=== PATIENT | male | born 1955 | race Caucasian/White ===

== ENCOUNTER 2023-07-14 15:35 | Observation (INO) | payer MEDICARE ==
[2023-07-14] MEDS: Ondansetron 4 MG/2 ML SDV IVPUSH ONE (15:57)
[2023-07-14] MEDS: PHENobarbital Sodium 130 MG/ML SDV IVPUSH STA (15:58)
[2023-07-14] MEDS: Sodium Chloride 0.9% 1,000 ML IV ONE ×3 (15:58→16:34)
[2023-07-14 16:00] LABS: BASOPHILS ABSOLUTE AUTO 0.06 K/uL (0.00-0.20); BASOPHILS PERCENT AUTO 0.6 % (0.0-1.0); EOSINOPHILS ABSOLUTE AUTO 0.09 K/uL (0.00-0.45); EOSINOPHILS PERCENT AUTO 0.9 % (0.0-6.0); HEMOGLOBIN 14.6 g/dL (14.0-18.0); IMMATURE GRAN ABSOLUTE AUTO 0.03 K/uL (0.00-0.05); IMMATURE GRAN PERCENT AUTO 0.3 % (0.0-0.4); LYMPHOCYTES ABSOLUTE AUTO 1.77 K/uL (1.00-4.80); LYMPHOCYTES PERCENT AUTO 18.3 % (24.0-44.0); MEAN CORPUSCULAR HEMOGLOBIN 32.4 pg (28.0-32.0); MEAN CORPUSCULAR HGB CONC 34.8 g/dL (32.0-36.0); MEAN CORPUSCULAR VOLUME 93.3 fL (83.0-99.0); MEAN PLATELET VOLUME 8.7 fL (9.4-12.4); MONOCYTES ABSOLUTE AUTO 0.88 K/uL (0.00-0.80); MONOCYTES PERCENT AUTO 9.1 % (0.0-8.0); NEUTROPHILS ABSOLUTE AUTO 6.82 K/uL (1.80-7.70); NEUTROPHILS PERCENT AUTO 70.8 % (41.0-71.0); PLATELET COUNT,PLT 326 K/uL (150-400); WHITE BLOOD CELL COUNT,WBC 9.65 K/uL (3.9-11.3)
[2023-07-14 16:21] LABS: A/G RATIO 0.8 (0.9-1.6); ALBUMIN 3.5 g/dL (3.4-5.0); BILIRUBIN TOTAL 0.5 mg/dL (0.2-1.0); CALCIUM 9.5 mg/dL (8.5-10.1); CARBON DIOXIDE,CO2 20.6 mmol/L (21.0-32.0); CREATININE 1.1 mg/dL (0.8-1.3); EST CRCL DRUG DOSING (CG) 65.44 mL/min; POTASSIUM,K 3.8 mmol/L (3.5-5.1)
[2023-07-14 16:24] LABS: LACTIC ACID 4.5 mmol/L (0.4-2.0)
[2023-07-14 17:07] LABS: APPEARANCE,URINE CLEAR; BILIRUBIN,URINE NEGATIVE (NEGATIVE); COLOR,URINE YELLOW; GLUCOSE,URINE NEGATIVE (NEGATIVE); KETONES,URINE TRACE mg/dL (NEGATIVE); LEUKOCYTE ESTERASE,URINE NEGATIVE (NEGATIVE); NITRITE,URINE NEGATIVE (NEGATIVE); OCCULT BLOOD,URINE NEGATIVE (NEGATIVE); PROTEIN,URINE NEGATIVE (NEGATIVE)
[2023-07-14] MEDS: Iopamidol 755 MG/ML 500 ML Multipack Bottle IVPUSH STA (17:37)
[2023-07-14] MEDS ORDERED: Dextrose 5%-0.9% NaCl 1,000 ML IV SCH (18:00)
[2023-07-14] MEDS: Thiamine 200 MG/2 ML MDV IVPUSH ONE (18:07)
[2023-07-14 18:27] LABS: BASE EXCESS VENOUS 1.2 (-2.0-3.0); PH,VENOUS 7.42 (7.31-7.41)
[2023-07-14] MEDS: Folic Acid 1 MG/0.2 ML UD Syringe IV STA (18:37)
[2023-07-14] MEDS: Multivitamin Tab PO STA (18:38)
[2023-07-14 18:57] LABS: MAGNESIUM 1.4 mg/dL (1.8-2.4); PHOSPHORUS 2.6 mg/dL (2.6-4.7)
[2023-07-14] MEDS: cefTRIAXone 1 GM in Sodium Chloride 0.9% 50 ML IV ONE (19:05)
[2023-07-14] MEDS: PHENobarbital Sodium 130 MG/ML SDV ONE (19:09)
[2023-07-14] MEDS: PHENobarbitaL sodium 260 MG in Sodium Chloride 0.9% 100 ML IV ONE (19:09)
[2023-07-14 19:19] LABS: ETHANOL BLOOD MEDICAL < 3.0 mg/dL
[2023-07-14] MEDS ORDERED: PHENobarbital 32.4 MG Tab PO PRN ×3 (19:23)
[2023-07-14] MEDS ORDERED: Acetaminophen 325 MG Tab PO PRN (19:23)
[2023-07-14] MEDS ORDERED: Polyethylene Glycol 3350 Powder 17 GM Packet PO PRN (19:23)
[2023-07-14] MEDS ORDERED: Ondansetron 4 MG Tab.DIS PO PRN (19:23)
[2023-07-14] MEDS ORDERED: PHENobarbital Sodium 130 MG/ML SDV IVPUSH PRN (19:31)
[2023-07-14] MEDS: Azithromycin 500 MG in Sodium Chloride 0.9% 250 ML IV ONE (19:31)
[2023-07-14] MEDS: Magnesium Sulfate/Water 4 GM in Premix Bag 1 BAG IV ONE (20:49)
[2023-07-14] MEDS: Sodium Chloride 0.9% 1,000 ML IV SCH (20:49)
[2023-07-14] MEDS: Enoxaparin 40 MG/0.4 ML Syringe SUBCUT SCH (20:49)
[2023-07-14] MEDS: Pantoprazole 40 MG in Sodium Chloride 0.9% 10 ML IVPUSH SCH (20:49)
[2023-07-15 06:08] LABS: BASOPHILS ABSOLUTE AUTO 0.03 K/uL (0.00-0.20); BASOPHILS PERCENT AUTO 0.4 % (0.0-1.0); EOSINOPHILS ABSOLUTE AUTO 0.17 K/uL (0.00-0.45); EOSINOPHILS PERCENT AUTO 2.4 % (0.0-6.0); HEMATOCRIT 36.9 % (42.0-52.0); HEMOGLOBIN 12.7 g/dL (14.0-18.0); IMMATURE GRAN ABSOLUTE AUTO 0.03 K/uL (0.00-0.05); IMMATURE GRAN PERCENT AUTO 0.4 % (0.0-0.4); LYMPHOCYTES ABSOLUTE AUTO 1.02 K/uL (1.00-4.80); LYMPHOCYTES PERCENT AUTO 14.7 % (24.0-44.0); MEAN CORPUSCULAR HEMOGLOBIN 33.3 pg (28.0-32.0); MEAN CORPUSCULAR HGB CONC 34.4 g/dL (32.0-36.0); MEAN CORPUSCULAR VOLUME 96.9 fL (83.0-99.0); MEAN PLATELET VOLUME 8.9 fL (9.4-12.4); MONOCYTES ABSOLUTE AUTO 0.54 K/uL (0.00-0.80); MONOCYTES PERCENT AUTO 7.8 % (0.0-8.0); NEUTROPHILS ABSOLUTE AUTO 5.16 K/uL (1.80-7.70); NEUTROPHILS PERCENT AUTO 74.3 % (41.0-71.0); PLATELET COUNT,PLT 253 K/uL (150-400); RED BLOOD CELL COUNT 3.81 M/uL (4.52-5.90); WHITE BLOOD CELL COUNT,WBC 6.95 K/uL (3.9-11.3)
[2023-07-15 06:31] LABS: A/G RATIO 0.7 (0.9-1.6); ALBUMIN 2.8 g/dL (3.4-5.0); BILIRUBIN TOTAL 0.5 mg/dL (0.2-1.0); CALCIUM 8.3 mg/dL (8.5-10.1); CARBON DIOXIDE,CO2 27.4 mmol/L (21.0-32.0); EST CRCL DRUG DOSING (CG) 71.99 mL/min; MAGNESIUM 2.2 mg/dL (1.8-2.4); POTASSIUM,K 3.6 mmol/L (3.5-5.1); PROTEIN TOTAL,TP 6.7 g/dL (6.4-8.2)
[2023-07-15] MEDS ORDERED: cefTRIAXone 1 GM in Sodium Chloride 0.9% 50 ML IV SCH ×2 (07:00→19:00)
[2023-07-15] MEDS ORDERED: Azithromycin 500 MG in Sodium Chloride 0.9% 250 ML IV SCH ×2 (07:00→20:00)
[2023-07-15] MEDS: Ondansetron 4 MG/2 ML SDV IVPUSH PRN (07:42)
[2023-07-15] MEDS: Folic Acid 1 MG/0.2 ML UD Syringe IV SCH (07:43)
[2023-07-15] MEDS: Thiamine 200 MG/2 ML MDV IVPUSH SCH (07:43)
[2023-07-15] MEDS: amLODIPine 5 MG Tab PO SCH (09:04)
[2023-07-15] MEDS: Losartan 50 MG Tab PO SCH (09:06)
[2023-07-15] MEDS: Famotidine 20 MG/2 ML SDV IVPUSH ONE (09:06)
[2023-07-15] MEDS ORDERED: atorvaSTATin 20 MG Tab PO SCH (21:00)
== END 2023-07-15 11:30 | disposition home or self-care (01) ==
LOC: MW.ED 15:35 → MW.MS 18:54
PROVIDERS: ADMIT Family Medicine; ATTEND Family Medicine
DX: F10.239 Alcohol dependence with withdrawal, unspecified (principal); I10 Essential (primary) hypertension; E78.5 Hyperlipidemia, unspecified
CPT/HCPCS: 36415; 71045; 74177; 80053; 80307; 81003; 82009; 82803; 83605; 83735; 84100; 85025; 87040; 93005; 96361; 96365; 96366; 96367; 96368; 96372; 96375; 96376; 99285; A9270; C9113; G0103; G0378; J0456; J0696; J1650; J2405; J2560; J3411; J3475; J3490; J7030; J7050; Q9967

== ENCOUNTER 2023-08-06 09:34 | Emergency (ER) | payer MEDICARE ==
[2023-08-06] MEDS: Ondansetron 4 MG/2 ML SDV IVPUSH ONE (09:57)
[2023-08-06] MEDS: Sodium Chloride 0.9% 1,000 ML IV ONE (09:57)
[2023-08-06 10:07] LABS: BASOPHILS ABSOLUTE AUTO 0.07 K/uL (0.00-0.20); BASOPHILS PERCENT AUTO 0.7 % (0.0-1.0); EOSINOPHILS ABSOLUTE AUTO 0.12 K/uL (0.00-0.45); EOSINOPHILS PERCENT AUTO 1.1 % (0.0-6.0); HEMATOCRIT 45.7 % (42.0-52.0); HEMOGLOBIN 16.1 g/dL (14.0-18.0); IMMATURE GRAN ABSOLUTE AUTO 0.02 K/uL (0.00-0.05); IMMATURE GRAN PERCENT AUTO 0.2 % (0.0-0.4); LYMPHOCYTES PERCENT AUTO 17.1 % (24.0-44.0); MEAN CORPUSCULAR HGB CONC 35.2 g/dL (32.0-36.0); MEAN CORPUSCULAR VOLUME 93.6 fL (83.0-99.0); MEAN PLATELET VOLUME 9.5 fL (9.4-12.4); MONOCYTES ABSOLUTE AUTO 0.76 K/uL (0.00-0.80); MONOCYTES PERCENT AUTO 7.2 % (0.0-8.0); NEUTROPHILS ABSOLUTE AUTO 7.73 K/uL (1.80-7.70); NEUTROPHILS PERCENT AUTO 73.7 % (41.0-71.0); PLATELET COUNT,PLT 362 K/uL (150-400); RED BLOOD CELL COUNT 4.88 M/uL (4.52-5.90)
[2023-08-06 10:11] LABS: CARBON DIOXIDE,CO2 19.9 mmol/L (21.0-32.0); CREATININE 1.2 mg/dL (0.8-1.3); EST CRCL DRUG DOSING (CG) 59.14 mL/min; POTASSIUM,K 4.1 mmol/L (3.5-5.1)
[2023-08-06] MEDS: LORazepam 2 MG/ML SDV IVPUSH ONE (10:15)
== END 2023-08-06 12:14 | disposition home or self-care (01) ==
LOC: MW.ED 09:34
DX: R11.2 Nausea with vomiting, unspecified (principal); I10 Essential (primary) hypertension; Z79.899 Other long term (current) drug therapy
CPT/HCPCS: 36415; 80048; 85025; 96361; 96374; 96375; 99284; J2060; J2405; J7030

== ENCOUNTER 2023-10-13 11:30 | Emergency (ER) | payer MEDICARE ==
[2023-10-13] MEDS: Morphine 4 MG/ML Syringe IVPUSH STA ×2 (12:00→12:54)
[2023-10-13] MEDS: Ondansetron 4 MG/2 ML SDV IVPUSH STA (12:00)
[2023-10-13 12:12] LABS: BASE EXCESS VENOUS 0.1 (-2.0-3.0); BASOPHILS ABSOLUTE AUTO 0.07 K/uL (0.00-0.20); BASOPHILS PERCENT AUTO 0.7 % (0.0-1.0); EOSINOPHILS ABSOLUTE AUTO 0.06 K/uL (0.00-0.45); EOSINOPHILS PERCENT AUTO 0.6 % (0.0-6.0); HEMATOCRIT 43.4 % (42.0-52.0); HEMOGLOBIN 15.5 g/dL (14.0-18.0); IMMATURE GRAN ABSOLUTE AUTO 0.04 K/uL (0.00-0.05); IMMATURE GRAN PERCENT AUTO 0.4 % (0.0-0.4); LYMPHOCYTES ABSOLUTE AUTO 1.44 K/uL (1.00-4.80); LYMPHOCYTES PERCENT AUTO 13.8 % (24.0-44.0); MEAN CORPUSCULAR HEMOGLOBIN 33.7 pg (28.0-32.0); MEAN CORPUSCULAR HGB CONC 35.7 g/dL (32.0-36.0); MEAN CORPUSCULAR VOLUME 94.3 fL (83.0-99.0); MEAN PLATELET VOLUME 8.7 fL (9.4-12.4); MONOCYTES ABSOLUTE AUTO 0.95 K/uL (0.00-0.80); MONOCYTES PERCENT AUTO 9.1 % (0.0-8.0); NEUTROPHILS ABSOLUTE AUTO 7.85 K/uL (1.80-7.70); NEUTROPHILS PERCENT AUTO 75.4 % (41.0-71.0); PH,VENOUS 7.55 (7.31-7.41); PLATELET COUNT,PLT 336 K/uL (150-400); WHITE BLOOD CELL COUNT,WBC 10.41 K/uL (3.9-11.3)
[2023-10-13 12:57] LABS: ETHANOL BLOOD MEDICAL <3 mg/dL; MAGNESIUM 1.5 mg/dL (1.8-2.4)
[2023-10-13 13:02] LABS: ALBUMIN 3.8 g/dL (3.4-5.0); BILIRUBIN TOTAL 0.9 mg/dL (0.2-1.0); CALCIUM 10.1 mg/dL (8.5-10.1); CARBON DIOXIDE,CO2 18.1 mmol/L (21.0-32.0); CREATININE 1.4 mg/dL (0.8-1.3); EST CRCL DRUG DOSING (CG) 52.29 mL/min; POTASSIUM,K 4.2 mmol/L (3.5-5.1); PROTEIN TOTAL,TP 7.5 g/dL (6.4-8.2)
[2023-10-13] MEDS: Promethazine 25 MG/ML SDV IM STA (13:04)
[2023-10-13] MEDS: Magnesium Sulfate/Water 2 GM in Premix Bag 1 BAG IV STA (13:04)
[2023-10-13] MEDS: Sodium Chloride 0.9% 1,000 ML IV STA ×3 (13:04→15:14)
[2023-10-13] MEDS: Iopamidol 755 MG/ML 500 ML Multipack Bottle IVPUSH STA (13:45)
[2023-10-13 14:18] LABS: APPEARANCE,URINE CLEAR; BILIRUBIN,URINE NEGATIVE (NEGATIVE); COLOR,URINE YELLOW; GLUCOSE,URINE NEGATIVE (NEGATIVE); KETONES,URINE NEGATIVE (NEGATIVE); LEUKOCYTE ESTERASE,URINE NEGATIVE (NEGATIVE); NITRITE,URINE NEGATIVE (NEGATIVE); OCCULT BLOOD,URINE NEGATIVE (NEGATIVE); PH,URINE 7.5 (5.0-8.0); PROTEIN,URINE NEGATIVE (NEGATIVE); UROBILINOGEN,URINE 0.2 EU/dL (<2.0)
[2023-10-13 15:03] LABS: AMPHETAMINES SCREEN, URINE NEGATIVE (CUTOFF=500); BARBITURATE SCREEN,URINE NEGATIVE (CUTOFF=200); BENZODIAZEPINES SCREEN,URINE NEGATIVE (CUTOFF=150); BUPRENORPHINE SCREEN,URINE NEGATIVE (CUTOFF=10); METHADONE SCREEN, URINE NEGATIVE (CUTOFF=200); METHAMPHETAMINES SCREEN, URINE NEGATIVE (CUTOFF=500); OXYCODONE SCREEN,URINE NEGATIVE (CUT0FF=100); PCP SCREEN,URINE NEGATIVE (CUTOFF=25); THC SCREEN,URINE 20 NG/ML NEGATIVE (CUTOFF=50)
[2023-10-13] MEDS ORDERED: Sodium Chloride 0.9% 1,000 ML IV STA (15:12)
[2023-10-13] MEDS: Sodium Chloride 0.9% 1,000 ML IV ONE (15:14)
== END 2023-10-13 16:10 | disposition home or self-care (01) ==
LOC: MW.ED 11:30
DX: R10.31 Right lower quadrant pain (principal); R10.32 Left lower quadrant pain; R11.2 Nausea with vomiting, unspecified; R74.02 Elevation of levels of lactic acid dehydrogenase [LDH]; I10 Essential (primary) hypertension; E78.00 Pure hypercholesterolemia, unspecified; Z79.899 Other long term (current) drug therapy; Z75.8 Other problems related to medical facilities and other health care
CPT/HCPCS: 36415; 71045; 74177; 80053; 80305; 80307; 81003; 82009; 82803; 82947; 83605; 83690; 83735; 84484; 85025; 93005; 96361; 96365; 96372; 96375; 96376; 99284; J2270; J2405; J2550; J3475; J7030; Q9967; 93010

== ENCOUNTER 2023-11-05 09:13 | Emergency (ER) | payer MEDICARE ==
[2023-11-05 09:58] LABS: BASOPHILS ABSOLUTE AUTO 0.04 K/uL (0.00-0.20); BASOPHILS PERCENT AUTO 0.4 % (0.0-1.0); EOSINOPHILS ABSOLUTE AUTO 0.01 K/uL (0.00-0.45); EOSINOPHILS PERCENT AUTO 0.1 % (0.0-6.0); HEMATOCRIT 41.9 % (42.0-52.0); HEMOGLOBIN 14.9 g/dL (14.0-18.0); IMMATURE GRAN ABSOLUTE AUTO 0.03 K/uL (0.00-0.05); IMMATURE GRAN PERCENT AUTO 0.3 % (0.0-0.4); LYMPHOCYTES ABSOLUTE AUTO 0.84 K/uL (1.00-4.80); LYMPHOCYTES PERCENT AUTO 8.3 % (24.0-44.0); MEAN CORPUSCULAR HEMOGLOBIN 33.6 pg (28.0-32.0); MEAN CORPUSCULAR HGB CONC 35.6 g/dL (32.0-36.0); MEAN CORPUSCULAR VOLUME 94.4 fL (83.0-99.0); MEAN PLATELET VOLUME 8.6 fL (9.4-12.4); MONOCYTES ABSOLUTE AUTO 0.59 K/uL (0.00-0.80); MONOCYTES PERCENT AUTO 5.9 % (0.0-8.0); NEUTROPHILS ABSOLUTE AUTO 8.57 K/uL (1.80-7.70); PLATELET COUNT,PLT 364 K/uL (150-400); RED BLOOD CELL COUNT 4.44 M/uL (4.52-5.90); WHITE BLOOD CELL COUNT,WBC 10.08 K/uL (3.9-11.3)
[2023-11-05 10:07] LABS: CORONAVIRUS COVID-19 NAA NEGATIVE (NEGATIVE); INFLUENZA A NAA NEGATIVE (NEGATIVE); INFLUENZA B NAA NEGATIVE (NEGATIVE)
[2023-11-05] MEDS: Albuterol/Ipratropium 3.0-0.5 MG/3 ML Neb Soln NEB ONE (10:07)
[2023-11-05 10:19] LABS: A/G RATIO 0.8 (0.9-1.6); ALANINE AMINOTRANSFERASE,ALT 48 IU/L (14-63); ALBUMIN 3.7 g/dL (3.4-5.0); ALKALINE PHOSPHATASE 107 U/L (46-116); ASPARTATE AMNIOTRANSFERASE,AST 44 IU/L (15-37); BILIRUBIN TOTAL 0.7 mg/dL (0.2-1.0); BLOOD UREA NITROGEN,BUN 6 mg/dL (7.0-18.0); CALCIUM 9.7 mg/dL (8.5-10.1); CARBON DIOXIDE,CO2 25.2 mmol/L (21.0-32.0); CHLORIDE,CL 97 mmol/L (98-107); CREATININE 1.4 mg/dL (0.8-1.3); EST CRCL DRUG DOSING (CG) 50.69 mL/min; ETHANOL BLOOD MEDICAL <3 mg/dL; GLUCOSE RANDOM 150 mg/dL (74-106); MAGNESIUM 1.7 mg/dL (1.8-2.4); POTASSIUM,K 4.1 mmol/L (3.5-5.1); PROTEIN TOTAL,TP 8.2 g/dL (6.4-8.2); SODIUM,NA 137 mmol/L (136-148)
[2023-11-05 10:21] LABS: ESTIMATED GFR 54 mL/min (>60)
[2023-11-05] MEDS: Ibuprofen 600 MG Tab PO ONE (11:22)
[2023-11-05] MEDS: Azithromycin 250 MG Tab PO ONE (11:22)
== END 2023-11-05 11:35 | disposition home or self-care (01) ==
LOC: MW.ED 09:13
DX: J40 Bronchitis, not specified as acute or chronic (principal); Z75.8 Other problems related to medical facilities and other health care; E78.00 Pure hypercholesterolemia, unspecified; I10 Essential (primary) hypertension; Z79.899 Other long term (current) drug therapy
CPT/HCPCS: 0240U; 36415; 71046; 80053; 80307; 83735; 85025; 94640; 99285; A9270; 99283; J7620-GY

== ENCOUNTER 2024-02-01 16:24 | Emergency (ER) | payer MEDICARE ==
[2024-02-01] MEDS ORDERED: Sodium Chloride 0.9% 2.5 ML Syringe FLUSH PRN (17:01)
[2024-02-01 17:16] LABS: BASOPHILS ABSOLUTE AUTO 0.08 K/uL (0.00-0.20); BASOPHILS PERCENT AUTO 0.7 % (0.0-1.0); EOSINOPHILS ABSOLUTE AUTO 0.18 K/uL (0.00-0.45); EOSINOPHILS PERCENT AUTO 1.5 % (0.0-6.0); HEMATOCRIT 38.1 % (42.0-52.0); HEMOGLOBIN 13.8 g/dL (14.0-18.0); IMMATURE GRAN ABSOLUTE AUTO 0.05 K/uL (0.00-0.05); IMMATURE GRAN PERCENT AUTO 0.4 % (0.0-0.4); LYMPHOCYTES ABSOLUTE AUTO 2.29 K/uL (1.00-4.80); LYMPHOCYTES PERCENT AUTO 18.6 % (24.0-44.0); MEAN CORPUSCULAR HEMOGLOBIN 34.4 pg (28.0-32.0); MEAN CORPUSCULAR HGB CONC 36.2 g/dL (32.0-36.0); MEAN PLATELET VOLUME 8.8 fL (9.4-12.4); MONOCYTES ABSOLUTE AUTO 1.11 K/uL (0.00-0.80); NEUTROPHILS ABSOLUTE AUTO 8.58 K/uL (1.80-7.70); NEUTROPHILS PERCENT AUTO 69.8 % (41.0-71.0); PLATELET COUNT,PLT 347 K/uL (150-400); RED BLOOD CELL COUNT 4.01 M/uL (4.52-5.90); WHITE BLOOD CELL COUNT,WBC 12.29 K/uL (3.9-11.3)
[2024-02-01] MEDS: Meclizine 25 MG Tab PO ONE (17:24)
[2024-02-01] MEDS: Sodium Chloride 0.9% 10 ML Syringe FLUSH PRN (17:26)
[2024-02-01 18:02] LABS: A/G RATIO 0.8 (0.9-1.6); ALBUMIN 3.3 g/dL (3.4-5.0); BILIRUBIN TOTAL 0.6 mg/dL (0.2-1.0); CALCIUM 9.5 mg/dL (8.5-10.1); CARBON DIOXIDE,CO2 22.8 mmol/L (21.0-32.0); CREATININE 1.2 mg/dL (0.8-1.3); EST CRCL DRUG DOSING (CG) 59.14 mL/min; POTASSIUM,K 4.2 mmol/L (3.5-5.1); PROTEIN TOTAL,TP 7.4 g/dL (6.4-8.2); TSH ULTRASENSITIVE 1.75 uIU/mL (0.36-3.74)
[2024-02-01] MEDS: LORazepam 2 MG/ML SDV IVPUSH ONE ×2 (18:37→19:04)
[2024-02-01] MEDS: Iopamidol 755 Mg/ML 100 ML Bottle IVPUSH ONE (21:27)
== END 2024-02-01 20:15 | disposition home or self-care (01) ==
LOC: MW.ED 16:24
DX: R42 Dizziness and giddiness (principal); I10 Essential (primary) hypertension; E78.00 Pure hypercholesterolemia, unspecified; Z79.899 Other long term (current) drug therapy
CPT/HCPCS: 36415; 70450; 70496; 70498; 71045; 80053; 80307; 83690; 84443; 84484; 85025; 87428; 93005; 96374; 99285; A9270; J2060; J3490; Q9967

== ENCOUNTER 2024-10-30 14:03 | Emergency (ER) | payer MEDICARE ==
[2024-10-30] MEDS ORDERED: Sodium Chloride 0.9% 2.5 ML Syringe FLUSH PRN (14:32)
[2024-10-30] MEDS ORDERED: Sodium Chloride 0.9% 10 ML Syringe FLUSH PRN (14:32)
[2024-10-30 14:37] LABS: BASOPHILS ABSOLUTE AUTO 0.08 K/uL (0.00-0.20); BASOPHILS PERCENT AUTO 0.8 % (0.0-1.0); EOSINOPHILS ABSOLUTE AUTO 0.12 K/uL (0.00-0.45); EOSINOPHILS PERCENT AUTO 1.1 % (0.0-6.0); IMMATURE GRAN ABSOLUTE AUTO 0.05 K/uL (0.00-0.05); IMMATURE GRAN PERCENT AUTO 0.5 % (0.0-0.4); LYMPHOCYTES ABSOLUTE AUTO 2.32 K/uL (1.00-4.80); LYMPHOCYTES PERCENT AUTO 22.0 % (24.0-44.0); MEAN PLATELET VOLUME 8.8 fL (9.4-12.4); MONOCYTES ABSOLUTE AUTO 0.64 K/uL (0.00-0.80); MONOCYTES PERCENT AUTO 6.1 % (0.0-8.0); NEUTROPHILS ABSOLUTE AUTO 7.34 K/uL (1.80-7.70); NEUTROPHILS PERCENT AUTO 69.5 % (41.0-71.0); NRBC ABSOLUTE 0.00 K/uL (0.00-0.02); NRBC PERCENT 0.0 /100WBC (0.0-0.2); PLATELET COUNT,PLT 407 K/uL (150-400); RED BLOOD CELL COUNT 3.91 M/uL (4.52-5.90); WHITE BLOOD CELL COUNT,WBC 10.55 K/uL (3.9-11.3)
[2024-10-30 14:45] LABS: INR 0.99 (0.86-1.11); PTT,PARTIAL THROMBOPLSTIN TIME 25.5 SEC (23.9-30.7)
[2024-10-30 14:59] LABS: A/G RATIO 0.7 (0.9-1.6); ALANINE AMINOTRANSFERASE,ALT 46.0 IU/L (14-63); ASPARTATE AMNIOTRANSFERASE,AST 68.0 IU/L (15-37); BILIRUBIN TOTAL 0.6 mg/dL (0.2-1.0); BLOOD UREA NITROGEN,BUN 9.0 mg/dL (7.0-18.0); CARBON DIOXIDE,CO2 20.8 mmol/L (21.0-32.0); CHLORIDE,CL 102.0 mmol/L (98-107); CREATININE 1.1 mg/dL (0.8-1.3); EST CRCL DRUG DOSING (CG) 63.6 mL/min; ETHANOL BLOOD MEDICAL 115.0 mg/dL; GLUCOSE RANDOM 116.0 mg/dL (74-106); POTASSIUM,K 3.9 mmol/L (3.5-5.1); PRO B-TYPE NATRIUR PEPT,BNPPRO 583.0 pg/mL (0-125); PROTEIN TOTAL,TP 7.2 g/dL (6.4-8.2); SODIUM,NA 141.0 mmol/L (136-148)
[2024-10-30 15:00] LABS: ESTIMATED GFR 72.0 mL/min (>60)
[2024-10-30] MEDS: Magnesium Sulfate 2 GM/50 mL 2 GM in Premix Bag 1 BAG IV ONE (15:21)
[2024-10-30] MEDS: Ondansetron 4 MG/2 ML SDV IVPUSH ONE (16:13)
[2024-10-30] MEDS: droPERidol 2.5 MG/ML SDV IVPUSH ONE (16:45)
[2024-10-30] MEDS: Iopamidol 755 MG/ML 500 ML Multipack Bottle IVPUSH STA (17:34)
== END 2024-10-30 19:05 | disposition home or self-care (01) ==
LOC: MW.ED 14:03
DX: M62.81 Muscle weakness (generalized) (principal); F10.10 Alcohol abuse, uncomplicated; I10 Essential (primary) hypertension; E78.00 Pure hypercholesterolemia, unspecified; Z79.899 Other long term (current) drug therapy
CPT/HCPCS: 36415; 70450; 70496; 70498; 71045; 72125; 80053; 80307; 82947; 83690; 83735; 83880; 84484; 85025; 85610; 85730; 93005; 96361; 96365; 96375; 99285; J1790; J2405; J3475; J7030; Q9967; 99283